=== PATIENT | female | born 1995 | race Caucasian/White ===

== ENCOUNTER 2020-10-23 12:07 | Emergency (ER) | payer SELFPAY ==
[2020-10-23 12:25] VITALS: BP 143/87; PULSE 98; RESP 18; TEMP 36.9; O2SAT 100; BMI 23.3
--- NOTE | 2020-10-23 14:12 | W.ED.EAR ---
HPI - Ear Problem General: Chief complaint: Ear Stated complaint: LEFT EAR PAIN Time Seen by Provider: 10/23/20 13:18 Source: patient Mode of arrival: ambulatory Limitations: no limitations History of Present Illness: MD Complaint: ear pain Location: left ear Duration: constant Severity: moderate Relieving factors: nothing Exacerbating factors: nothing Discharge from ear: yes - purulent Associated symptoms: Reports no associated symptoms and ear or mastoid pain; Denies fever(s), headache(s), neck pain or tinnitus Treatment prior to arrival: none Review of Systems Const: Denies: fever(s), chills, body aches, change in appetite, change in weight, fatigue, malaise or diaphoresis Eyes: Denies: change in vision, blurry vision, blind spots, photophobia, eye discomfort, eye discharge, eye redness, floaters or seeing flashes ENMT: Reports: ear or mastoid pain and ear discharge; Denies: throat pain, uvular edema, enlarged tonsils, odynophagia, hoarseness, mouth pain, swelling of lips/tongue, oral sores, bleeding gums, dental pain, dry mouth, change in hearing, tinnitus, disequilibrium, nasal discharge, nasal congestion, post nasal drip or sinus pain Card: Denies: chest pain, palpitations, irregular heart rhythm, edema, swelling of feet/ankles, lightheadedness, syncope, pre-syncope, dyspnea on exertion, orthopnea, leg pain with exertion or acrocyanosis Resp: Denies: dyspnea, productive cough, non-productive cough, wheezing, stridor, pain on inspiration, change in phlegm color, hemoptysis or chest congestion GI: Denies: abdominal pain, nausea, vomiting, hematemesis, dysphagia, diarrhea, constipation, GI cramping, change in bowel habits or rectal pain : Denies: flank pain, difficulty voiding, dysuria, urinary frequency, urinary urgency, urinary hesitancy or hematuria Musc: Denies: neck pain, back pain, extremity pain, extremity swelling, joint pain, joint swelling, joint redness, joint warmth or deformity Skin/Breast: Denies: rash, pruritus, erythema, sores, new lesions, changes in skin color or dry skin Neuro: Denies: headache(s), numbness in extremities, weakness in extremities, sensory changes, lack of coordination, difficulty walking, frequent falls, dizziness, vertigo, confusion, behavioral changes, Slurred speech present, difficulty communicating thoughts or seizure-like activity Psych: Denies: anxiety, depression, suicidal ideation or homicidal ideation Endo: Denies: polyuria, polydipsia, tired all the time, cold intolerance, excessive sweating, flushing, hot flashes or heat intolerance Rohan/Lymph: Denies: easy bruising, easy bleeding, petechiae, purpura, enlarged lymph nodes or tender lymph nodes All/Imm: Denies: urticaria, throat swelling, tongue swelling, facial swelling, acute wheezing or itchy eyes Physical Exam Const: COMMON NORMALS: no acute distress, average body habitus, patient oriented x3, no limitations, healthy appearing, alert and well nourished HENMT: COMMON NORMALS: external ears normal and EAC's normal; not normocephalic, head/scalp not atraumatic, hearing grossly not normal bilaterally, TM's not normal bilaterally, external nose not normal, nasal mucous membranes&turbinates abnorm, oral mucous membranes not moist, oropharynx not normal, dentition not normal and gingiva not normal HEAD & SCALP: not normocephalic and not atraumatic NOSE: external nose not normal and nasal mucous membranes&turbinates abnorm EXTERNAL EAR: Yes external ears normal EXTERNAL AUDITORY CANAL: EAC's normal and Abnormal EAC present EAC laterality: left TYMPANIC MEMBRANE: unable to visualize TM; TM(s) not normal bilaterally THROAT: no uvular edema Eye: COMMON NORMALS: negative for Equal, round and reactive pupils present, negative for EOMs intact bilaterally, negative for conjunctivae normal, negative for no scleral icterus, negative for no papilledema, negative for normal visual carrion by confrontation and negative for fundi normal bilaterally CONJUNCTIVA: No conjunctivae normal PUPIL: No Equal, round and reactive pupils present DIRECT OPHTHALMOSCOPY: No no papilledema and No fundi normal bilaterally Resp: COMMON NORMALS: normal respiratory effort, No retractions, No use of accessory muscles, clear to auscultation bilaterally and percussion normal AUSCULTATION: clear to auscultation bilaterally PERCUSSION: percussion normal Neuro: COMMON NORMALS: patient oriented x3 SENSORIUM/ORIENTATION: Yes alert Skin: COMMON NORMALS: no rashes or lesions noted, no wounds, turgor normal, no jaundice, no petechiae and no mottling GENERAL SKIN EXAM: no rashes or lesions noted and turgor normal Course Vital Signs: Vital signs: Vital Signs Temperature 98.5 F 10/23/20 12:25 Pulse Rate 98 10/23/20 12:25 Respiratory Rate 18 10/23/20 12:25 Blood Pressure 143/87 10/23/20 12:25 Pulse Oximetry 100 10/23/20 12:25 MDM - Ear MDM Narrative: Medical decision making narrative: Pt is well appearing non toxic and in no acute distress. Pts physical exam findings are c/w acute otits externa. I iwll place patient on otic antibiotic drops. Pt did not have any mastoid tenderness exam otherwise negative. I discussed with patient home care as well as return precautions. Pt verbalizes understanding Discharge Plan Discharge Patient Disposition: Home Clinical Impression: Otitis externa Qualifiers: Otitis externa type: unspecified type Chronicity: acute Laterality: left Qualified Code(s): H60.502 - Unspecified acute noninfective otitis externa, left ear Condition: Stable Prescriptions: New ciprofloxacin-hydrocortisone 0.2-1 % drops,suspension 3 drp otic (ear) BID 7 Days RF: 0 Discharge Orders: Discharge ED (Routine); Ordered 10/23/20 Ordered By: Talisha Hernandez Referrals: Harinder Ramirez Jr, MD [Primary Care Provider] - Discharge Diet: Advance as tolerated Discharge Activity: Limit activity as instructed Patient Instructions: Opioid Safety Activity Restrictions/Additional Instructions: Please no swimming and keep ear clean and dry until infection resolves Please take meds as prescribed Please return to ER with any worsening of symptoms Coding Level of Care Code ED Health Spa Manager for Natalie Sandoval
== END 2020-10-23 14:19 | disposition home or self-care (01) ==
PROVIDERS: Emergency Provider Registered Nurse; PCP Pediatrics Adolescent Medicine
DX: H60.502 Unspecified acute noninfective otitis externa, left ear (principal)
CPT/HCPCS: 99281

== ENCOUNTER 2020-12-07 23:29 | Emergency (ER) | payer SELFPAY ==
[2020-12-07 23:39] VITALS: BP 135/86; PULSE 101; RESP 18; TEMP 36.6; O2SAT 100; BMI 23.3
--- NOTE | 2020-12-07 23:47 | ED_ITS ---
HPI - Ear Problem General: Chief complaint: Ear Stated complaint: Ear Ache Time Seen by Provider: 12/07/20 23:29 History of Present Illness: HPI Narrative: Patient is a 25-year-old female comes to the ED with left ear pain. Patient says symptoms started approximately 5 days ago. She says she was out swimming just prior to onset of ear pain and think she had water in her left ear. She now has auricle pain. Denies any fever, chills or discharge from ear. Associated symptoms: Reports ear or mastoid pain (left ear); Denies fever(s), headache(s) or neck pain Review of Systems Const: Denies: fever(s), chills or fatigue Eyes: Denies: change in vision or eye discomfort ENMT: Reports: ear or mastoid pain (left ear); Denies: throat pain, odynophagia, nasal discharge or nasal congestion Card: Denies: chest pain, palpitations, edema, swelling of feet/ankles, dyspnea on exertion or orthopnea Resp: Denies: dyspnea, productive cough or non-productive cough GI: Denies: abdominal pain, nausea, vomiting, diarrhea, constipation or hematochezia : Denies: flank pain, dysuria or hematuria Musc: Denies: neck pain, back pain or extremity swelling Skin/Breast: Denies: rash or new lesions Neuro: Denies: headache(s), numbness in extremities or weakness in extremities PFSH ED PFSH: Social History Smoking and tobacco status: current every day smoker Alcohol intake: current Physical Exam Const: COMMON NORMALS: no acute distress, patient oriented x3, healthy appearing and alert GENERAL APPEARANCE: cooperative and comfortable HENMT: COMMON NORMALS: normocephalic HEAD & SCALP: normocephalic EXTERNAL EAR: Yes external ear abnormal Abnormal external ear present: auricular tenderness EXTERNAL AUDITORY CANAL: Abnormal EAC present EAC laterality: left Details: erythema, edema and EAC tenderness TYMPANIC MEMBRANE: unable to visualize TM (Unable to visualize TM on right ear due to wax in left due to EAC swelling) MOUTH: Normal oral and palatal mucosa present THROAT: posterior oropharynx normal and uvula midline Neck/C-Spine: COMMON NORMALS: supple GENERAL: Yes normal visual inspection Resp: COMMON NORMALS: normal respiratory effort, No retractions, No use of accessory muscles and clear to auscultation bilaterally AUSCULTATION: clear to auscultation bilaterally Cardio: COMMON NORMALS: regular rate, regular rhythm, S1 normal heart sound present, S2 normal heart sound present, No gallops present (Cardio), No clicks present (Cardio), No murmurs present (Cardio) and Peripheral pulses 2+ throughout RATE: regular rate RHYTHM: regular rhythm HEART SOUNDS: S1 normal heart sound present and S2 normal heart sound present PERIPHERAL PULSES: Peripheral pulses 2+ throughout GI: COMMON NORMALS: Normal to inspection, nondistended, normoactive bowel sounds present, Soft to palpation, non-tender and no masses PALPATION: Yes Soft to palpation : COMMON NORMALS: Yes no CVA tenderness BLADDER/KIDNEY EXAM: Yes no CVA tenderness Back/Pelvis: COMMON NORMALS: no CVA tenderness Extremity: COMMON NORMALS: normal to inspection Neuro: COMMON NORMALS: patient oriented x3 and moves all extremities SENSORIUM/ORIENTATION: Yes alert Skin: GENERAL SKIN EXAM: dry skin Course Vital Signs: Vital signs: Vital Signs Temperature 97.8 F 12/07/20 23:39 Pulse Rate 86 12/08/20 00:23 Respiratory Rate 18 12/07/20 23:39 Blood Pressure 156/88 12/08/20 00:23 Pulse Oximetry 100 12/08/20 00:23 MDM - Ear MDM Narrative: Medical decision making narrative: Patient is a 25-year-old female comes to the ED with left ear pain. Symptoms started 5 days ago after she had been swimming got some water in her ear. Exam shows left ear-otitis externa and I was unable to visualize the TM. She had her auricular tenderness as well. We went to discharge patient home with amoxicillin as well just in case she has any TM swelling or erythema that I was unable to visualize on exam due to canal edema. Patient was given Ciprodex eardrops while here in the ED. She was discharged home with Ciprodex eardrop prescription and a prescription for amoxicillin. She was told to follow-up with her PCP in a week to be reevaluated. Return ED precautions given. Patient understood and agree with plan. Discharge Plan Discharge Patient Disposition: Home Clinical Impression: Otitis externa Qualifiers: Otitis externa type: swimmer's ear Chronicity: acute Laterality: left Qualified Code(s): H60.332 - Swimmer's ear, left ear Condition: Stable Prescriptions: New ciprofloxacin-dexamethasone 0.3-0.1 % drops,suspension 4 drp otic (ear) BID 7 Days Qty: 7.5 RF: 0 amoxicillin 500 mg capsule 500 mg PO BID 10 Days Qty: 20 RF: 0 No Action mupirocin 2 % ointment 1 applic topical BID 14 Days Qty: 22 RF: 0 sulfamethoxazole-trimethoprim [Bactrim DS] 800-160 mg tablet 1 tab PO BID 7 Days Qty: 14 RF: 0 Discharge Orders: Discharge ED (Routine); Ordered 12/07/20 Ordered By: Franko Vance Discharge Diet: Regular Discharge Activity: Increase activity as tolerated Patient Instructions: Otitis Externa (ED) Activity Restrictions/Additional Instructions: Follow-up with medical provider as directed. Take medications as prescribed. Return to the ER or your medical provider if condition worsens. Please read and understand discharge instructions. Thank you for choosing [facility] for your healthcare needs today. Please realize this is an emergency room and that we are providing you with a medical screening exam and this may not be complete and all inclusive of all the testing and or work up that you may need to determine your ailment or severity of your illness. It is very important that you follow up as instructed or that you return to the Emergency Department should you have concerns or if your c ondition changes or worsens in any way. Stand Alone Forms: Work/School Release Coding Level of Care Code ED Slusher Operator for Natalie Fwjuan Exam Comprehensive
[2020-12-08] MEDS: ciprofloxacin-dexameth Otic Susp 7.5 mL Btl 4 DROP EAR-LEFT (00:19)
[2020-12-08 00:23] VITALS: BP 156/88; PULSE 86; O2SAT 100
== END 2020-12-08 00:25 | disposition home or self-care (01) ==
PROVIDERS: Emergency Provider Physician Assistant; PCP Pediatrics Adolescent Medicine
DX: H60.332 Swimmer's ear, left ear (principal); F17.210 Nicotine dependence, cigarettes, uncomplicated
CPT/HCPCS: 99282

== ENCOUNTER 2024-01-26 17:58 | Emergency (ER) | payer BC, MEDICAID, SELFPAY ==
[2024-01-26 18:27] VITALS: BP 143/88; PULSE 110; RESP 14; TEMP 37; O2SAT 98
--- NOTE | 2024-01-26 19:08 | ED_ITS ---
HPI - Recheck/Abnormal Lab/Rx General: Chief Complaint: Recheck/Abnormal Lab/Rx Stated Complaint: possibly preganant - laura mendosa sent Time Seen by Provider: 01/26/24 18:42 Source: patient Mode of arrival: ambulatory Limitations: no limitations History of Present Illness: Patient is a 28-year-old female presenting to the emergency department referred by Dr. Mendosa for blood test. Patient states she has not had a period for 2 months, and has never been in the past. She also notes she has been having breast pain and overall weight gain. States that she had 4 at home test that were negative, and a urine test at [facility] that was negative. States she is simply here just to find out if she is or not. No other symptoms reported at this time. MD complaint: other (Presents for blood test) Related Data Previous Rx's Medication Instructions Recorded mupirocin 2 % topical ointment 1 applic topical TID 10 days #15 12/16/22 grams diphenhydramine HCl 25 mg tablet 50 mg (2 x 25 mg) PO Q8H PRN 12/18/23 (Benadryl Allergy) nausea and vomiting #30 tabs famotidine 40 mg tablet (Pepcid) 40 mg PO BID #10 tabs 12/18/23 prednisone 20 mg tablet 60 mg (3 x 20 mg) PO DAILY 5 days 12/18/23 #15 tabs Allergies Allergy/AdvReac Type Severity Reaction Status Date / Time amoxicillin Allergy Mild ADR-Diarrhe Verified 01/26/24 18:31 a Review of Systems General: Reports: 10 or more systems reviewed and unremarkable except in HPI and below Const: Reports: change in weight and other (Present for blood test, breast pain, weight gain); Denies: fever(s), chills or fatigue Eyes: Denies: change in vision ENMT: Denies: throat pain, ear or mastoid pain or nasal discharge Card: Denies: chest pain, palpitations, swelling of feet/ankles or lightheadedness Resp: Denies: dyspnea, productive cough or wheezing GI: Denies: abdominal pain, nausea, vomiting, diarrhea or constipation : Denies: flank pain, difficulty voiding, dysuria or urinary frequency Musc: Denies: neck pain, back pain or joint pain Skin/Breast: Denies: rash Neuro: Denies: headache(s), numbness in extremities or weakness in extremities PFSH ED PFSH: Social History Smoking and tobacco/nicotine status: unknown if used tobacco/nicotine Alcohol intake: current Physical Exam Const: COMMON NORMALS: no acute distress and no limitations GENERAL APPEARANCE: cooperative, comfortable and well developed ORIENTATION/CONSCIOUSNESS: Yes awake HENMT: COMMON NORMALS: normocephalic, atraumatic and hearing grossly normal bilaterally HEAD & SCALP: normocephalic and atraumatic Eye: COMMON NORMALS: Equal, round and reactive pupils present, EOMs intact bilaterally and conjunctivae normal CONJUNCTIVA: Yes conjunctivae normal PUPIL: Yes Equal, round and reactive pupils present Neck/C-Spine: COMMON NORMALS: full ROM, supple and no JVD Resp: COMMON NORMALS: normal respiratory effort, No retractions, No use of accessory muscles and clear to auscultation bilaterally AUSCULTATION: clear to auscultation bilaterally Cardio: COMMON NORMALS: no JVD, regular rate, regular rhythm, No clicks prese nt (Cardio), No murmurs present (Cardio) and No rub (Cardio) RATE: regular rate RHYTHM: regular rhythm Extremity: COMMON NORMALS: normal to inspection, full ROM and capillary refill normal Psych: COMMON NORMALS: mental status grossly normal and Normal thought process present THOUGHT PROCESS: Normal thought process present Skin: COMMON NORMALS: no rashes or lesions noted GENERAL SKIN EXAM: no rashes or lesions noted Course Vital Signs: Vital signs: Vital Signs Temperature 98.6 F 01/26/24 18:27 Pulse Rate 110 H 01/26/24 18:27 Respiratory Rate 14 01/26/24 18:27 Blood Pressure 143/88 01/26/24 18:27 Pulse Oximetry 98 01/26/24 18:27 Oxygen Delivery Me thod Room Air 01/26/24 18:27 MDM - Recheck/Abnormal Lab/Rx Medical Decision Making Encounter for blood test. Multiple at home test negative and urine test negative. Here in the emergency department her centimeters test is also negative. She has no other complaints or issues states she was just here to rule this out. Will be discharged home. Lab Data Laboratory Results HCG, Qual Negative (Negative) 10/02/24 19:20 No radiology studies performed this visit Discharge Plan Discharge Patient Disposition: Home Clinical Impression: Encounter for test with result negative Condition: Stable Prescriptions: No Action mupirocin 2 % ointment 1 applic topical TID 10 Days Qty: 15 0RF prednisone 20 mg tablet 60 mg PO DAILY 5 Days Qty: 15 0RF famotidine [Pepcid] 40 mg tablet 40 mg PO BID Qty: 10 0RF diphenhydramine HCl [Benadryl Allergy] 25 mg tablet 50 mg PO Q8H PRN (Reason: nausea and vomiting) Qty: 30 0RF Discharge Orders: Discharge ED (Routine); Ordered 01/26/24 Ordered By: Shoaib Khalil Discharge Diet: Usual diet Discharge Activity: Resume usual activity Patient Instructions: Opioid Safety, Pain Management Activity Restrictions/Additional Instructions: Follow-up with primary care for any complaints. Coding Level of Care Code ED Technical Services Coordinator for Natalie Sandoval
[2024-01-26 19:45] LABS: HCG, Serum Qual Negative (Negative)
== END 2024-01-26 19:56 | disposition home or self-care (01) ==
PROVIDERS: Emergency Provider Physician Assistant
DX: Z32.02 Encounter for pregnancy test, result negative (principal)
CPT/HCPCS: 36415; 84703; 99283

== ENCOUNTER 2024-02-07 16:02 | Emergency (ER) | payer BC, MEDICAID, SELFPAY ==
[2024-02-07 16:14] VITALS: BP 153/87; PULSE 107; RESP 16; TEMP 36.7; O2SAT 98; BMI 27.4
--- NOTE | 2024-02-07 16:34 | ED_ITS ---
HPI - Dental/Oral 2 General: Chief complaint: Dental/Oral Stated complaint: rash all over Time Seen by Provider: 02/07/24 16:04 Source: patient Mode of arrival: ambulatory Limitations: no limitations History of Present Illness: Patient is a 28-year-old female presents to ED today with two separate complaints. First of all, she complains of a possible dental abscess. She is having pain to her right upper molar. She states she has known significant dental caries and dental disease. She admitting only has had poor dental follow-up due to lack of insurance. She reportedly just received adult Medicaid and is hoping to follow-up with a dentist soon. She has noticed some mild swelling to the right side of her face. She is still eating and drinking normally. No trouble swallowing or breathing. She is controlling secretions normally. Denies fevers or headache. Her second complaint is a pruritic rash to her neck, trunk, and bilateral upper and lower extremities. She states she is highly allergic to poison oak/[place]/leti and states she has these plants diffusely around her residence. She states she has had poison leti rashes before that have presented identically. She states she had good response to steroids that have been used in the past. MD Complaint: tooth pain Teeth map: 1. Onset (ago): day(s) Duration: constant Severity: moderate Relieving factors: nothing Exacerbating factors: nothing Context: history of dental caries and poor dental care Associated symptoms: Reports no associated symptoms; Denies ear or mastoid pain, fever(s) or odynophagia Treatment prior to arrival: none Related Data Previous Rx's Medication Instructions Recorded mupirocin 2 % topical ointment 1 applic topical TID 10 days #15 12/16/22 grams diphenhydramine HCl 25 mg tablet 50 mg (2 x 25 mg) PO Q8H PRN 12/18/23 (Benadryl Allergy) nausea and vomiting #30 tabs famotidine 40 mg tablet (Pepcid) 40 mg PO BID #10 tabs 12/18/23 prednisone 20 mg tablet 60 mg (3 x 20 mg) PO DAILY 5 days 12/18/23 #15 tabs clindamycin HCl 300 mg capsule 300 mg PO Q6H 7 days #28 caps 02/07/24 Allergies Allergy/AdvReac Type Severity Reaction Status Date / Time amoxicillin Allergy Mild ADR-Diarrhe Verified 02/07/24 16:16 a Review of Systems 2 Const: Denies: fever(s), chills, body aches, fatigue or malaise Eyes: Denies: change in vision, blurry vision, photophobia, floaters or seeing flashes ENMT: Reports: dental pain; Denies: throat pain, odynophagia, ear or mastoid pain, nasal discharge, nasal congestion or sinus pain Card: Denies: chest pain Resp: Denies: dyspnea GI: Denies: abdominal pain, nausea, vomiting or diarrhea Musc: Denies: neck pain, back pain, extremity pain, extremity swelling, joint pain or joint swelling Skin/Breast: Reports: rash and pruritus Neuro: Denies: headache(s) or dizziness PFSH ED 2 PFSH: Social History Smoking and tobacco/nicotine status: unknown if used tobacco/nicotine Alcohol intake: current Physical Exam 2 Const: COMMON NORMALS: no acute distress, average body habitus, patient oriented x3, no limitations, healthy appearing, alert and well nourished G ENERAL APPEARANCE: cooperative ORIENTATION/CONSCIOUSNESS: Yes awake, Yes oriented to person, Yes oriented to place and Yes oriented to time HENMT: FACE & SINUS: sinuses nontender and edema (mild ) on the right M OUTH: Normal oral and palatal mucosa present and lip normal TEETH & GINGIVA: Yes poor dentition (widespread dental disease/caries) TEETH & GINGIVA IMAGES: 1. significantly decayed molar; possible early abscess formation-nothing amendable to drainage at this time THROAT: posterior oropharynx normal and tonsils normal Eye: GENERAL EYE: appearance normal, both eyes and all related structures Neck/C-Spine: COMMON NORMALS: no lymphadenopathy GENERAL: Yes normal visual inspection, No anterior neck swelling and No submandibular swelling Resp: COMMON NORMALS: normal respiratory effort Neuro: COMMON NORMALS: patient oriented x3, moves all extremities, no focal motor deficits, no sensory deficits noted and gait normal S ENSORIUM/ORIENTATION: Yes alert, Yes oriented to person, Yes oriented to place and Yes oriented to time Skin: NARRATIVE SKIN EXAM: scattered erythematous areas to neck, volar forearms, trunk, and upper legs that appear consistent with a plant dermatitis RASHES: rashes noted Course 2 Vital Signs: Vital signs: Vital Signs Temperature 98.0 F 02/07/24 16:14 Pulse Rate 107 H 02/07/24 16:14 Respiratory Rate 16 02/07/24 16:14 Blood Pressure 153/87 02/07/24 16:14 Pulse Oximetry 98 02/07/24 16:14 Oxygen Delivery Me thod Room Air 02/07/24 16:14 MDM - Dental/Oral Medical Decision Making Patient requesting IM steroids for plant dermatitis. She was given a long- acting and short acting IM steroid prior to discharge. She has an allergy to amoxicillin. Will place her on clindamycin for dental infection. Recommend follow-up with dentist as soon as possible. Return precautions given. Differential Diagnosis Likely dental abscess Medical Records I reviewed the patient's medical records. No radiology studies performed this visit Discharge Plan Discharge Patient Disposition: Home Clinical Impression: Dental caries, Dental abscess, Dermatitis due to plant Condition: Stable Prescriptions: New clindamycin HCl 300 mg capsule 300 mg PO Q6H 7 Days Qty: 28 0RF No Action mupirocin 2 % ointment 1 applic topical TID 10 Days Qty: 15 0RF prednisone 20 mg tablet 60 mg PO DAILY 5 Days Qty: 15 0RF famotidine [Pepcid] 40 mg tablet 40 mg PO BID Qty: 10 0RF diphenhydramine HCl [Benadryl Allergy] 25 mg tablet 50 mg PO Q8H PRN (Reason: nausea and vomiting) Qty: 30 0RF Discharge Orders: Discharge ED (Routine); Ordered 02/07/24 Ordered By: Carole Arguelles Patient Instructions: Poison [place], [place], and [place] - Adult, Dental Abscess Coding Level of Care Code ED Merchandising Coordinator for Chg Jaime
[2024-02-07] MEDS: hydrocortisone 100 mg/2 mL SDV 75 MG IM (16:40)
[2024-02-07] MEDS: triamcinolone 40 mg/mL SDV IM (16:40)
[2024-02-07 16:48] VITALS: BP 136/96; PULSE 106; RESP 16; O2SAT 97
[2024-02-07 16:51] VITALS: BP 123/78; PULSE 110; RESP 16; O2SAT 97
== END 2024-02-07 16:54 | disposition home or self-care (01) ==
PROVIDERS: Emergency Provider Physician Assistant
DX: K04.7 Periapical abscess without sinus (principal); K02.9 Dental caries, unspecified; L25.5 Unspecified contact dermatitis due to plants, except food
CPT/HCPCS: 96372; 99284; J1720; J3301

== ENCOUNTER 2024-10-25 12:07 | Emergency (ER) | payer BC, MEDICAID, SELFPAY ==
[2024-10-25 12:16] VITALS: BP 146/87; PULSE 110; RESP 18; TEMP 36.7; O2SAT 100; BMI 26.6
--- OUTSIDE RECORDS SUMMARY | 2024-10-25 12:16 | XMS_ITS | Encounter Summary ---
Author Organization [facility] Address [address] [place] [address] Care Team Providers Care Electrical Contractor Name Role Phone James Hylton MD, Harinder Calzada Primary Care Pr ovider Encounter Details Date Type Department Care Team (Latest Contact Info) Description 03/06/2002 Outpatient Historical [facility] Oral and Maxillo Surgery- [address] [place] [address] Adolfo Aguilar, DDS NO ADDRESS ON FILE UNSPEC DENTAL CARIES (Primary Dx) Social History Tobacco Use Types Packs/Day Years Used Date Smoking Tobacco: Never Assessed Comments Unknown Sex and Gender Information Value Date Recorded Sex Assigned at Not on file Legal Sex Female 6:21 AM MANAGER TRANSPORT Gender Identity Not on file Sexual Orientation Not on file documented as of this encounter Plan of Treatment Not on file documented as of this encounter Visit Diagnoses Diagnosis Unspecified dental caries- Primary documented in this encounter Care Teams Electrical Contractor Relationship Specialty Start Date End Date Harinder Ramirez Jr., MD [address] [place] [address] [phone] PCP - General 05/24/02 documented as of this encounter
--- OUTSIDE RECORDS SUMMARY | 2024-10-25 12:16 | XMS_ITS | Clinical Summary ---
Author Organization [facility] Address [address] [address] Phone Care Team Providers Care Picture Painter Name Role Phone James Hylton MD, Harinder Calzada Primary Care Pr ovider Allergies No known active allergies Medications No known medications Immunizations Immunization Administration Dates Next Due (M-M-R II/PRIORIX)(12 MO UP) MEASLES, MUMPS AND RUBELLA VIRUS VACCINE, 0.5 ML IM/SUBCUT 08/07/1999,12/01/1995 Dt Dtp Dtap Vaccine 08/07/1999, 7,12/01/1995,1995,06/22/1995 HIB, Unspecified Formulation 06/28/1996, 12/01/1995,09/16/1995,1995 Hepatitis B Vaccine 09/16/1995,06/22/1995,1994 IPV/OPV 08/07/1999, 6,09/16/1995,1995 Family History Medical History Relation Name Comments No Known Problems Father Relation Name Status Comments Father Social History Tobacco Use Types Packs/Day Years Used Date Smoking Tobacco: Every Day Cigarettes 0.5 7 Comments Unknown Sex and Gender Information Value Date Recorded Sex Assigned at Not on file Legal Sex Female 6:21 AM HEEL PRICKER Gender Identity Not on file Sexual Orientation Not on file Last Filed Vital Signs Vital Sign Reading Time Taken Comments Blood Pressure 112/64 03/22/2019 5:43 AM HEEL PRICKER Pulse - - Temperature 36.8 C (98.2 F) 03/22/2019 5:43 AM HEEL PRICKER Respiratory Rate 18 03/22/2019 5:14 AM HEEL PRICKER Oxygen Saturation 98% 03/22/2019 5:43 AM HEEL PRICKER Inhaled Oxygen Concentration - - Weight 59.1 kg (130 lb 6.4 oz) 03/22/2019 5:14 A M HEEL PRICKER Height 165.1 cm (5' 5 ) 03/22/2019 5:14 AM HEEL PRICKER Body Mass Index 21.7 03/22/2019 5:14 AM HEEL PRICKER Plan of Treatment Health Maintenance Due Date Last Done Comments DTAP/TDAP/TD VACCINES (6 - Tdap) 2005 08/07/1999, 06/28/1996, 12/01/1995, Additional history exists CERVICAL CANCER SCREENING 11/20/2015 HPV/Cotest (21-29) 11/20/2015 PAP SMEAR 11/20/2015 INFLUENZA VACCINE (#1) 2023 HPV/Cotest (30-65) 2024 HEPATITIS B VACCINES Completed 09/16/1995, 06/22/1995, 1994 HPV VACCINES Aged Out No longer eligi ble based on patient's age to complete this topic Care Teams Picture Painter Relationship Specialty Start Date End Date James Hylton, Harinder Calzada MD [address] [place] [phone] PCP - General 05/24/02
--- OUTSIDE RECORDS SUMMARY | 2024-10-25 12:16 | XMS_ITS | Encounter Summary ---
Author Organization [facility] Address [address] [place] [address] Care Team Providers Care Correspondent Name Role Phone James Hylton MD, Harinder Calzada Primary Care Pr ovider Encounter Details Date Type Department Care Team (Latest Contact Info) Description 08/09/2002 Outpatient Historical [facility] Oral and Maxillo Surgery- [address] [place] [address] Adolfo Aguilar, DDS NO ADDRESS ON FILE UNSPEC DENTAL CARIES (Primary Dx) Social History Tobacco Use Types Packs/Day Years Used Date Smoking Tobacco: Never Assessed Comments Unknown Sex and Gender Information Value Date Recorded Sex Assigned at Not on file Legal Sex Female 6:21 AM TAFFY PULLER Gender Identity Not on file Sexual Orientation Not on file documented as of this encounter Plan of Treatment Not on file documented as of this encounter Visit Diagnoses Diagnosis Unspecified dental caries- Primary documented in this encounter Care Teams Correspondent Relationship Specialty Start Date End Date Harinder Ramirez Jr., MD [address] [place] [address] [phone] PCP - General 05/24/02 documented as of this encounter
--- OUTSIDE RECORDS SUMMARY | 2024-10-25 12:16 | XMS_ITS | Clinical Summary ---
Author Organization [facility] Address [address] [facility] Attn: Epic Prelude ADT [place]IRTA NIETO [address] Care Team Providers Care Radiology Manager Name Role Phone James Hylton MD, Harinder Calzada Primary Care Pr ovider Allergies No known active allergies Immunizations Immunization Administration Dates Next Due (M-M-R [...] Used Date Smoking Tobacco: Every Day Cigarettes Comments Unknown Sex and Gender Information Value Date Recorded Sex Assigned at Not on file Legal Sex Female 2:23 PM INCLUSION SPECIAL EDUCATOR Gender Identity Not on file Sexual Orientation Not on file Last Filed Vital Signs Vital Sign Reading Time Taken Comments Blood Pressure 112/64 03/22/2019 5:43 AM INCLUSION SPECIAL EDUCATOR Pulse - - Temperature 36.8 C (98.2 F) 03/22/2019 5:43 AM INCLUSION SPECIAL EDUCATOR Respiratory Rate 18 03/22/2019 5:14 AM INCLUSION SPECIAL EDUCATOR Oxygen Saturation - - Inhaled Oxygen Concentration - - Weight 59.1 kg (130 lb 6.4 oz) 03/22/2019 5:14 A M INCLUSION SPECIAL EDUCATOR Height 165.1 cm (5' 5 ) 03/22/2019 5:14 AM INCLUSION SPECIAL EDUCATOR Body Mass Index 21.7 03/22/2019 5:14 AM INCLUSION SPECIAL EDUCATOR Plan of Treatment Health Maintenance Due Date Last Done Comments DTAP/TDAP/TD VACCINES (6 - Tdap) 2005 08/07/1999, 06/28/1996, 12/01/1995, Additional history exists CERVICAL CANCER SCREENING 11/20/2015 HPV/Cotest (21-29) 11/20/2015 PAP SMEAR 11/20/2015 HPV/Cotest (30-65) 2024 INFLUENZA VACCINE (#1) 2024 HEPATITIS B VACCINES Completed 09/16/1995, 06/22/1995, 1994 HPV VACCINES Aged Out No longer eligi ble based on patient's age to complete this topic Care Teams Radiology Manager Relationship Specialty Start Date End Date James Hylton, Harinder Calzada MD [address] [place] [phone] PCP - General 05/24/02
--- OUTSIDE RECORDS SUMMARY | 2024-10-25 12:16 | XMS_ITS | Encounter Summary ---
Author Organization [facility] Address [address] [place] [address] Care Team Providers Care Drink Waiter Name Role Phone James Hylton MD, Harinder Calzada Primary Care Pr muncieer Encounter Details Date Type Department Care Team (Latest Contact Info) Description 08/09/2002 Outpatient Historical [facility] Operating Room [address] [place] [address] Adolfo Aguilar, LUNAS NO ADDRESS ON FILE UNSPEC DENTAL CARIES (Primary Dx) Social History Tobacco Use Types Packs/Day Years Used Date Smoking Tobacco: Never Assessed Comments Unknown Sex and Gender Information Value Date Recorded Sex Assigned at Not on file Legal Sex Female 6:21 AM DESIGN PAINTER Gender Identity Not on file Sexual Orientation Not on file documented as of this encounter Plan of Treatment Not on file documented as of this encounter Visit Diagnoses Diagnosis Unspecified dental caries- Primary documented in this encounter Care Teams Drink Waiter Relationship Specialty Start Date End Date Harinder Ramirez Jr., MD [address] [place] [phone] PCP - General 05/24/02 documented as of this encounter
--- OUTSIDE RECORDS SUMMARY | 2024-10-25 12:16 | XMS_ITS | Encounter Summary ---
Author Organization [facility] Address [address] [place] [address] Care Team Providers Care Patient Support Partner Name Role Phone James Hylton MD, Harinder Calzada Primary Care Pr reynoldsvilleer Encounter Details Date Type Department Care Team (Latest Contact Info) Description 05/24/[address] [facility] Operating Room [address] [place] [address] Adolfo Aguilar, LUNAS NO ADDRESS ON FILE DENTAL DISORDER NOS (Primary Dx) Social History Tobacco Use Types Packs/Day Years Used Date Smoking Tobacco: Never Assessed Comments Unknown Sex and Gender Information Value Date Recorded Sex Assigned at Not on file Legal Sex Female 6:21 AM CHIPPER FEEDER Gender Identity Not on file Sexual Orientation Not on file documented as of this encounter Plan of Treatment Not on file documented as of this encounter Visit Diagnoses Diagnosis Unspecified disorder of the teeth and supporting structures- Primary documented in this encounter Care Teams Patient Support Partner Relationship Specialty Start Date End Date Harinder Ramirez Jr., MD [address] [place] [phone] PCP - General 05/24/02 documented as of this encounter
--- NOTE | 2024-10-25 12:32 | W.ED.DENTAL ---
HPI - Dental/Oral General: Chief complaint: Dental/Oral Stated complaint: facial swelling, tooth ache Time Seen by Provider: 10/25/24 12:25 Source: patient Mode of arrival: ambulatory Limitations: no limitations History of Present Illness: 28-year-old female states she has had right upper dental pain over the last 2 days she has had some slight swelling as well. She denies any fever denies any trismus she has not seen a dentist. Rates her pain an 8 out of 10 denies any worsening improving factors. Associated symptoms: Denies fever(s) Related Data Previous Rx's ?Medication ?Instructions ?Recorded mupirocin 2 % topical ointment 1 applic topical TID 10 days #15 12/16/22 grams diphenhydramine HCl 25 mg tablet 50 mg (2 x 25 mg) PO Q8H PRN 12/18/23 (Benadryl Allergy) nausea and vomiting #30 tabs famotidine 40 mg tablet (Pepcid) 40 mg PO BID #10 tabs 12/18/23 prednisone 20 mg tablet 60 mg (3 x 20 mg) PO DAILY 5 days 12/18/23 #15 tabs cephalexin 500 mg capsule 500 mg PO TID 7 days #21 caps 10/25/24 naproxen 500 mg tablet (Naprosyn) 500 mg PO BID PRN pain #20 tabs 10/25/24 Allergies Allergy/AdvReac Type Severity Reaction Status Date / Time amoxicillin Allergy Mild ADR-Diarrhe Verified 02/07/24 16:16 a Review of Systems Const: Denies: fever(s), chills, body aches or change in appetite ENMT: Reports: dental pain; Denies: throat pain Card: Denies: chest pain Resp: Denies: dyspnea GI: Denies: abdominal pain, nausea, vomiting or diarrhea Musc: Denies: neck pain or back pain Skin/Breast: Denies: rash Neuro: Denies: headache(s) PFSH ED PFSH: Social History Smoking and tobacco/nicotine status: unknown if used tobacco/nicotine Alcohol intake: current Physical Exam Const: COMMON NORMALS: no acute distress, patient oriented x3 and healthy appearing HENMT: COMMON NORMALS: normocephalic and atraumatic HEAD & SCALP: normocephalic and atraumatic OTHER: Dental caries noted tenderness to right upper molar has some slight swelling no abscess or trismus Eye: COMMON NORMALS: conjunctivae normal CONJUNCTIVA: Yes conjunctivae normal Neck/C-Spine: COMMON NORMALS: full ROM and supple Chest: COMMONS NORMALS: normal inspection of the chest Resp: COMMON NORMALS: normal respiratory effort Cardio: COMMON NORMALS: regular rate RATE: regular rate Extremity: COMMON NORMALS: normal to inspection and full ROM Neuro: COMMON NORMALS: patient oriented x3, moves all extremities and no focal motor deficits Psych: COMMON NORMALS: mental status grossly normal, Normal thought process present and cooperative THOUGHT PROCESS: Normal thought process present Skin: COMMON NORMALS: no rashes or lesions noted and no wounds GENERAL SKIN EXAM: no rashes or lesions noted Course Vital Signs: Vital signs: Vital Signs Temperature 98.1 F 10/25/24 12:16 Pulse Rate 110 H 10/25/24 12:16 Respiratory Rate 18 10/25/24 12:16 Blood Pressure 146/87 10/25/24 12:16 Pulse Oximetry 100 10/25/24 12:16 Oxygen Delivery Me thod Room Air 10/25/24 12:16 MDM - Dental/Oral Medical Decision Making Patient presents for dental pain no abscess formation at this time no trismus we will start her on antibiotics she is to follow-up with dentist return if worsening. Medical Records I reviewed the patient's medical records. No radiology studies performed this visit Discharge Plan Discharge Patient Disposition: Home Clinical Impression: Dental infection Condition: Stable Prescriptions: New cephalexin 500 mg capsule 500 mg PO TID 7 Days Qty: 21 0RF naproxen [Naprosyn] 500 mg tablet 500 mg PO BID PRN (Reason: pain) Qty: 20 0RF No Action mupirocin 2 % ointment 1 applic topical TID 10 Days Qty: 15 0RF prednisone 20 mg tablet 60 mg PO DAILY 5 Days Qty: 15 0RF famotidine [Pepcid] 40 mg tablet 40 mg PO BID Qty: 10 0RF diphenhydramine HCl [Benadryl Allergy] 25 mg tablet 50 mg PO Q8H PRN (Reason: nausea and vomiting) Qty: 30 0RF Discharge Orders: Discharge ED (Routine); Ordered 10/25/24 Ordered By: Basia Anand Discharge Diet: Advance as tolerated Discharge Activity: Resume usual activity Patient Instructions: Toothache (ED) Print Language: Mongolian Coding Level of Care Code ED Mineral Economist for Natalie Sandoval
[2024-10-25] MEDS: HYDROcodone-acetaminophen 7.5-325 mg Tablet 1 TAB PO (12:35)
[2024-10-25 12:39] VITALS: BP 158/108; PULSE 104; O2SAT 100
== END 2024-10-25 12:40 | disposition home or self-care (01) ==
PROVIDERS: Emergency Provider Emergency Medicine
DX: K04.7 Periapical abscess without sinus (principal)
CPT/HCPCS: 99283; J9999

== ENCOUNTER 2024-11-19 21:01 | Emergency (ER) | payer BC, MEDICAID, SELFPAY ==
[2024-11-19 21:01] VITALS: BP 148/84; PULSE 110; RESP 16; TEMP 36.7; O2SAT 97; BMI 26.6
--- OUTSIDE RECORDS SUMMARY | 2024-11-19 21:08 | XMS_ITS | Encounter Summary ---
Author Organization [facility] Address [address] [place] [address] Care Team Providers Care Valve Machine Operator Name Role Phone James Hylton MD, Harinder Calzada Primary Care Pr ovider Encounter Details Date Type Department Care Team (Latest Contact Info) Description 03/06/2002 Outpatient Historical [facility] Oral and Maxillo Surgery- [address] [place] [address] Adolfo Aguilar, DDS NO ADDRESS ON FILE UNSPEC DENTAL CARIES (Primary Dx) Social History Tobacco Use Types Packs/Day Years Used Date Smoking Tobacco: Never Assessed Comments Unknown Sex and Gender Information Value Date Recorded Sex Assigned at Not on file Legal Sex Female 6:21 AM PANEL INSTALLER Gender Identity Not on file Sexual Orientation Not on file documented as of this encounter Plan of Treatment Not on file documented as of this encounter Visit Diagnoses Diagnosis Unspecified dental caries- Primary documented in this encounter Care Teams Valve Machine Operator Relationship Specialty Start Date End Date Harinder Ramirez Jr., MD [address] [place] [address] [phone] PCP - General 05/24/02 documented as of this encounter
--- OUTSIDE RECORDS SUMMARY | 2024-11-19 21:08 | XMS_ITS | Encounter Summary ---
Author Organization [facility] Address [address] [place] [address] Care Team Providers Care Pipe Line Inspector Name Role Phone James Hylton MD, Harinder Calzada Primary Care Pr fieldtoner Encounter Details Date Type Department Care Team (Latest Contact Info) Description 08/09/2002 Outpatient Historical [facility] Operating Room [address] [place] [address] Adolfo Aguilar, LUNAS NO ADDRESS ON FILE UNSPEC DENTAL CARIES (Primary Dx) Social History Tobacco Use Types Packs/Day Years Used Date Smoking Tobacco: Never Assessed Comments Unknown Sex and Gender Information Value Date Recorded Sex Assigned at Not on file Legal Sex Female 6:21 AM UPPER CUTTER Gender Identity Not on file Sexual Orientation Not on file documented as of this encounter Plan of Treatment Not on file documented as of this encounter Visit Diagnoses Diagnosis Unspecified dental caries- Primary documented in this encounter Care Teams Pipe Line Inspector Relationship Specialty Start Date End Date Harinder Ramirez Jr., MD [address] [place] [phone] PCP - General 05/24/02 documented as of this encounter
--- OUTSIDE RECORDS SUMMARY | 2024-11-19 21:08 | XMS_ITS | Clinical Summary ---
Author Organization [facility] Address [address] [address] Phone Care Team Providers Care Electrocardiograph Repairer Name Role Phone James Hylton MD, Harinder [...] on file Legal Sex Female 6:21 AM C.O.D. AUDIT CLERK Gender Identity Not on file Sexual Orientation Not on file Last Filed Vital Signs Vital Sign Reading Time Taken Comments Blood Pressure 112/64 03/22/2019 5:43 AM C.O.D. AUDIT CLERK Pulse - - Temperature 36.8 C (98.2 F) 03/22/2019 5:43 AM C.O.D. AUDIT CLERK Respiratory Rate 18 03/22/2019 5:14 AM C.O.D. AUDIT CLERK Oxygen Saturation 98% 03/22/2019 5:43 AM C.O.D. AUDIT CLERK Inhaled Oxygen Concentration - - Weight 59.1 kg (130 lb 6.4 oz) 03/22/2019 5:14 A M C.O.D. AUDIT CLERK Height 165.1 cm (5' 5 ) 03/22/2019 5:14 AM C.O.D. AUDIT CLERK Body Mass Index 21.7 03/22/2019 5:14 AM C.O.D. AUDIT CLERK Plan of Treatment Health Maintenance Due Date Last Done Comments DTAP/TDAP/TD VACCINES (6 - Tdap) 2005 08/07/1999, 06/28/1996, 12/01/1995, Additional history exists HPV VACCINES (1 - 3-dose series) 2009 CERVICAL CANCER SCREENING 11/20/2015 HPV/Cotest (21-29) 11/20/2015 PAP SMEAR 11/20/2015 HPV/Cotest (30-65) 2024 INFLUENZA VACCINE (#1) 2024 HEPATITIS B VACCINES Completed 09/16/1995, 06/22/1995, 1994 Care Teams Electrocardiograph Repairer Relationship Specialty Start Date End Date James Hylton, Harinder Calzada MD [address] [place] [address] [phone] PCP - General 05/24/02
--- OUTSIDE RECORDS SUMMARY | 2024-11-19 21:08 | XMS_ITS | Encounter Summary ---
Author Organization [facility] Address [address] [place] [address] Care Team Providers Care Testing Engineer Name Role Phone James Hylton MD, Harinder Calzada Primary Care Pr ovider Encounter Details Date Type Department Care Team (Latest Contact Info) Description 08/09/2002 Outpatient Historical [facility] Oral and Maxillo Surgery- [address] [place] [address] Adolfo Aguilar, DDS NO ADDRESS ON FILE UNSPEC DENTAL CARIES (Primary Dx) Social History Tobacco Use Types Packs/Day Years Used Date Smoking Tobacco: Never Assessed Comments Unknown Sex and Gender Information Value Date Recorded Sex Assigned at Not on file Legal Sex Female 6:21 AM PAPER SPOOLER Gender Identity Not on file Sexual Orientation Not on file documented as of this encounter Plan of Treatment Not on file documented as of this encounter Visit Diagnoses Diagnosis Unspecified dental caries- Primary documented in this encounter Care Teams Testing Engineer Relationship Specialty Start Date End Date Harinder Ramirez Jr., MD [address] [place] [address] [phone] PCP - General 05/24/02 documented as of this encounter
--- OUTSIDE RECORDS SUMMARY | 2024-11-19 21:08 | XMS_ITS | Encounter Summary ---
Author Organization [facility] Address [address] [place] [address] Care Team Providers Care Speech Language Pathology Assistant Name Role Phone James Hylton MD, Harinder Calzada Primary Care Pr genevaer Encounter Details Date Type Department Care Team (Latest Contact Info) Description 05/24/2002 Outpatient Historical [facility] Operating Room [address] [place] [address] Adolfo Aguilar, LUNAS NO ADDRESS ON FILE DENTAL DISORDER NOS (Primary Dx) Social History Tobacco Use Types Packs/Day Years Used Date Smoking Tobacco: Never Assessed Comments Unknown Sex and Gender Information Value Date Recorded Sex Assigned at Not on file Legal Sex Female 6:21 AM PUBLIC SPEAKING INSTRUCTOR Gender Identity Not on file Sexual Orientation Not on file documented as of this encounter Plan of Treatment Not on file documented as of this encounter Visit Diagnoses Diagnosis Unspecified disorder of the teeth and supporting structures- Primary documented in this encounter Care Teams Speech Language Pathology Assistant Relationship Specialty Start Date End Date Harinder Ramirez Jr., MD [address] [place] [address] [phone] PCP - General 05/24/02 documented as of this encounter
--- OUTSIDE RECORDS SUMMARY | 2024-11-19 21:08 | XMS_ITS | Clinical Summary ---
Author Organization [facility] Address [address] [facility] Attn: Epic Prelude ADT MIRTA NIETO [address] Care Team Providers Care Waistline Joiner Lockstitch Name Role Phone James Hylton MD, Harinder [...] on file Legal Sex Female 2:23 PM LARD TUB WASHER Gender Identity Not on file Sexual Orientation Not on file Last Filed Vital Signs Vital Sign Reading Time Taken Comments Blood Pressure 112/64 03/22/2019 5:43 AM LARD TUB WASHER Pulse - - Temperature 36.8 C (98.2 F) 03/22/2019 5:43 AM LARD TUB WASHER Respiratory Rate 18 03/22/2019 5:14 AM LARD TUB WASHER Oxygen Saturation - - Inhaled Oxygen Concentration - - Weight 59.1 kg (130 lb 6.4 oz) 03/22/2019 5:14 A M LARD TUB WASHER Height 165.1 cm (5' 5 ) 03/22/2019 5:14 AM LARD TUB WASHER Body Mass Index 21.7 03/22/2019 5:14 AM LARD TUB WASHER Plan of Treatment Health Maintenance Due Date Last Done Comments DTAP/TDAP/TD VACCINES (6 - Tdap) 2005 08/07/1999, 06/28/1996, 12/01/1995, Additional history exists HPV VACCINES (1 - 3-dose series) 2009 CERVICAL CANCER SCREENING 11/20/2015 HPV/Cotest (21-29) 11/20/2015 PAP SMEAR 11/20/2015 HPV/Cotest (30-65) 2024 INFLUENZA VACCINE (#1) 2024 HEPATITIS B VACCINES Completed 09/16/1995, 06/22/1995, 1994 Care Teams Waistline Joiner Lockstitch Relationship Specialty Start Date End Date James Hylton, Harinder Calzada MD [address] [place] [address] [phone] PCP - General 05/24/02
--- NOTE | 2024-11-19 21:29 | W.ED.SKABFB ---
HPI - Skin/Abscess/Foreign Bdy General: Chief complaint: Skin/Abscess/Foreign Body Stated complaint: Rash Time Seen by Provider: 11/19/24 21:20 History of Present Illness: Patient is a 29-year-old female without medical issues that presented to the ED with poison leti or poison sumac. This occurred approximately 2 weeks ago and 1 spot on her right leg, and then has moved to her left flank, and is now on her torso. There is no facial involvement at this time. She is not having difficulty breathing. She denies any palpitations. Associated symptoms: Deny chills, fever(s), nausea or vomiting Related Data Previous Rx's ?Medication ?Instructions ?Recorded mupirocin 2 % topical ointment 1 applic topical TID 10 days #15 12/16/22 grams diphenhydramine HCl 25 mg tablet 50 mg (2 x 25 mg) PO Q8H PRN 12/18/23 (Benadryl Allergy) nausea and vomiting #30 tabs famotidine 40 mg tablet (Pepcid) 40 mg PO BID #10 tabs 12/18/23 prednisone 20 mg tablet 60 mg (3 x 20 mg) PO DAILY 5 days 12/18/23 #15 tabs naproxen 500 mg tablet (Naprosyn) 500 mg PO BID PRN pain #20 tabs 10/25/24 clobetasol 0.05 % topical ointment 1 applic topical BID 1 week #60 11/19/24 grams methylprednisolone 4 mg tablets in See Rx Instructions PO .COMPLEX 11/19/24 a dose pack (Medrol (Jagjit)) #21 ea Allergies Allergy/AdvReac Type Severity Reaction Status Date / Time amoxicillin Allergy Mild ADR-Diarrhe Verified 02/07/24 16:16 a Review of Systems Const: Denies: fever(s), chills, body aches or change in appetite ENMT: Reports: dental pain; Denies: throat pain Card: Denies: chest pain Resp: Denies: dyspnea GI: Denies: abdominal pain, nausea, vomiting or diarrhea Musc: Denies: neck pain or back pain Skin/Breast: Reports: rash, pruritus and erythema Neuro: Denies: headache(s) Psych: Denies: anxiety or depression PFS ED PFSH: Social History Smoking and tobacco/nicotine status: unknown if used tobacco/nicotine Alcohol intake: current Female Reproductive History: Date of last menstrual period: 11/12/24 Physical Exam Const: COMMON NORMALS: no acute distress, patient oriented x3 and healthy appearing HENMT: COMMON NORMALS: normocephalic and atraumatic HEAD & SCALP: normocephalic and atraumatic Eye: COMMON NORMALS: conjunctivae normal CONJUNCTIVA: Yes conjunctivae normal Neck/C-Spine: COMMON NORMALS: full ROM and supple Chest: COMMONS NORMALS: normal inspection of the chest Resp: COMMON NORMALS: normal respiratory effort Cardio: COMMON NORMALS: regular rate RATE: regular rate Extremity: COMMON NORMALS: normal to inspection and full ROM Neuro: COMMON NORMALS: patient oriented x3, moves all extremities and no focal motor deficits Psych: COMMON NORMALS: mental status grossly normal, Normal thought process present and cooperative THOUGHT PROCESS: Normal thought process present Skin: SKIN IMAGES (FEMALE):  1. rash 2. rash 3. rash Course Vital Signs: Vital signs: Vital Signs Temperature 98.0 F 11/19/24 21:01 Pulse Rate 110 H 11/19/24 21:01 Respiratory Rate 16 11/19/24 21:01 Blood Pressure 148/84 11/19/24 21:01 Pulse Oximetry 97 11/19/24 21:01 Oxygen Delivery Me thod Room Air 11/19/24 21:01 MDM - Skin/Abscess/Foreign Bdy Medicial Decision Making Patient is 29-year-old female with ongoing and repeating plant dermatitis. Suspect she is continuing to reexposed herself. Discussed with patient. She will wash all of her bedding, sheets, animals and take medication as prescribed. Patient's questions were answered to her satisfaction. No radiology studies performed this visit Discharge Plan Discharge Patient Disposition: Home Clinical Impression: Plant irritant contact dermatitis, Contact dermatitis due to poison sumac Condition: Stable Prescriptions: New methylprednisolone [Medrol (Jagjit)] 4 mg tablets,dose pack See Rx Instructions .ROUTE .COMPLEX Qty: 21 0RF Rx Instructions: for 6 days clobetasol 0.05 % ointment 1 applic topical BID 7 Days Qty: 60 0RF Rx Instructions: Apply to areas of plant dermatitis up to twice daily. Avoid face and genitals. No Action mupirocin 2 % ointment 1 applic topical TID 10 Days Qty: 15 0RF prednisone 20 mg tablet 60 mg PO DAILY 5 Days Qty: 15 0RF famotidine [Pepcid] 40 mg tablet 40 mg PO BID Qty: 10 0RF diphenhydramine HCl [Benadryl Allergy] 25 mg tablet 50 mg PO Q8H PRN (Reason: nausea and vomiting) Qty: 30 0RF naproxen [Naprosyn] 500 mg tablet 500 mg PO BID PRN (Reason: pain) Qty: 20 0RF Discharge Orders: Discharge ED (Routine); Ordered 11/19/24 Ordered By: Leah Zurita Discharge Diet: Usual diet Discharge Activity: Resume usual activity Patient Instructions: Poison Leti, Duck, and Sumac - Adult, Patient Portal & [facility] Instructions Activity Restrictions/Additional Instructions: Wash all sheets, bedding, towels, clothes, shoes/shoelaces, hiking gear associated with plant touching. Wash all dogs/fur babies Take [id number]-yynxeqf Claritin daily to help with antihistamines You may also obtain Pepcid qqmy-idy-eanhheh also called famotidine, take 2 twice daily to help with histamine release Apply careful sparse cover of steroids sent to pharmacy over areas affected. Do not use on your face or genitals. Print Language: [place] Coding Level of Care Code ED Elevator Examiner for Natalie Sandoval
== END 2024-11-19 21:57 | disposition home or self-care (01) ==
PROVIDERS: Emergency Provider Physician Assistant
DX: L23.7 Allergic contact dermatitis due to plants, except food (principal)
CPT/HCPCS: 96372; 99284; J1100; J9999

== ENCOUNTER 2024-12-15 20:29 | Emergency (ER) | payer BC, MEDICAID, SELFPAY ==
[2024-12-15 20:33] VITALS: BP 129/79; PULSE 110; RESP 18; TEMP 36.7; O2SAT 100; BMI 26.6
--- OUTSIDE RECORDS SUMMARY | 2024-12-15 20:38 | XMS_ITS | Clinical Summary ---
Author Organization [facility] Address [address] [facility] Attn: Epic Prelude ADT MIRTA NIETO [address] Care Team Providers Care Tucking Machine Operator Name Role Phone James Hylton [...] on file Legal Sex Female 2:23 PM LEAD ORACLE DEVELOPER Gender Identity Not on file Sexual Orientation Not on file Last Filed Vital Signs Vital Sign Reading Time Taken Comments Blood Pressure 112/64 03/22/2019 5:43 AM LEAD ORACLE DEVELOPER Pulse - - Temperature 36.8 C (98.2 F) 03/22/2019 5:43 AM LEAD ORACLE DEVELOPER Respiratory Rate 18 03/22/2019 5:14 AM LEAD ORACLE DEVELOPER Oxygen Saturation - - Inhaled Oxygen Concentration - - Weight 59.1 kg (130 lb 6.4 oz) 03/22/2019 5:14 A M LEAD ORACLE DEVELOPER Height 165.1 cm (5' 5 ) 03/22/2019 5:14 AM LEAD ORACLE DEVELOPER Body Mass Index 21.7 03/22/2019 5:14 AM LEAD ORACLE DEVELOPER Plan of Treatment Health Maintenance Due Date Last Done Comments DTAP/TDAP/TD VACCINES (6 - Tdap) 2005 08/07/1999, 06/28/1996, 12/01/1995, Additional history exists HPV VACCINES (1 - 3-dose series) 2009 HPV/Cotest (21-29) 11/20/2015 CERVICAL CANCER SCREENING 2024 HPV/Cotest (30-65) 2024 PAP SMEAR 2024 INFLUENZA VACCINE (#1) 2024 HEPATITIS B VACCINES Completed 09/16/1995, 06/22/1995, 1994 Care Teams Tucking Machine Operator Relationship Specialty Start Date End Date James Hylton, Harinder Calzada MD [address] [place] [phone] PCP - General 05/24/02
--- OUTSIDE RECORDS SUMMARY | 2024-12-15 20:38 | XMS_ITS | Encounter Summary ---
Author Organization [facility] Address [address] [place] [address] Care Team Providers Care Computer Tester Name Role Phone James Hylton MD, Harinder Calzada Primary Care Pr ovider Encounter Details Date Type Department Care Team (Latest Contact Info) Description 03/06/2002 Outpatient Historical [facility] Oral and Maxillo Surgery- [address] [place] [address] Adolfo Aguilar, DDS NO ADDRESS ON FILE UNSPEC DENTAL CARIES (Primary Dx) Social History Tobacco Use Types Packs/Day Years Used Date Smoking Tobacco: Never Assessed Comments Unknown Sex and Gender Information Value Date Recorded Sex Assigned at Not on file Legal Sex Female 6:21 AM NOVELTY MAKER Gender Identity Not on file Sexual Orientation Not on file documented as of this encounter Plan of Treatment Not on file documented as of this encounter Visit Diagnoses Diagnosis Unspecified dental caries- Primary documented in this encounter Care Teams Computer Tester Relationship Specialty Start Date End Date Harinder Ramirez Jr., MD [address] [place] [phone] PCP - General 05/24/02 documented as of this encounter
--- OUTSIDE RECORDS SUMMARY | 2024-12-15 20:38 | XMS_ITS | Encounter Summary ---
Author Organization [facility] Address [address] [place] [address] Care Team Providers Care Cosmetology Instructor Name Role Phone James Hylton MD, Harinder Calzada Primary Care Pr waterburyer Encounter Details Date Type Department Care Team (Latest Contact Info) Description 08/09/2002 Outpatient Historical [facility] Operating Room [address] [place] [address] Adolfo Aguilar, LUNAS NO ADDRESS ON FILE UNSPEC DENTAL CARIES (Primary Dx) Social History Tobacco Use Types Packs/Day Years Used Date Smoking Tobacco: Never Assessed Comments Unknown Sex and Gender Information Value Date Recorded Sex Assigned at Not on file Legal Sex Female 6:21 AM LITERACY COORDINATOR Gender Identity Not on file Sexual Orientation Not on file documented as of this encounter Plan of Treatment Not on file documented as of this encounter Visit Diagnoses Diagnosis Unspecified dental caries- Primary documented in this encounter Care Teams Cosmetology Instructor Relationship Specialty Start Date End Date Harinder Ramirez Jr., MD [address] [place] [phone] PCP - General 05/24/02 documented as of this encounter
--- OUTSIDE RECORDS SUMMARY | 2024-12-15 20:38 | XMS_ITS | Encounter Summary ---
Author Organization [facility] Address [address] [place] [address] Care Team Providers Care Manager Bench Name Role Phone James Hylton MD, Harinder Calzada Primary Care Pr ovider Encounter Details Date Type Department Care Team (Latest Contact Info) Description 05/24/2002 Outpatient Historical [facility] Operating Room [address] [place] [address] Adolfo Aguilar, LUNAS NO ADDRESS ON FILE DENTAL DISORDER NOS (Primary Dx) Social History Tobacco Use Types Packs/Day Years Used Date Smoking Tobacco: Never Assessed Comments Unknown Sex and Gender Information Value Date Recorded Sex Assigned at Not on file Legal Sex Female 6:21 AM ANNEALING FURNACE TENDER Gender Identity Not on file Sexual Orientation Not on file documented as of this encounter Plan of Treatment Not on file documented as of this encounter Visit Diagnoses Diagnosis Unspecified disorder of the teeth and supporting structures- Primary documented in this encounter Care Teams Manager Bench Relationship Specialty Start Date End Date Harinder Ramirez Jr., MD [address] [place] [phone] PCP - General 05/24/02 documented as of this encounter
--- OUTSIDE RECORDS SUMMARY | 2024-12-15 20:38 | XMS_ITS | Clinical Summary ---
Author Organization [facility] Address [address] [address] Phone Care Team Providers Care Plaster Machine Tender Name Role Phone James Hylton MD, Harinder [...] on file Legal Sex Female 6:21 AM SENIOR SYSTEMS DEVELOPER Gender Identity Not on file Sexual Orientation Not on file Last Filed Vital Signs Vital Sign Reading Time Taken Comments Blood Pressure 112/64 03/22/2019 5:43 AM SENIOR SYSTEMS DEVELOPER Pulse - - Temperature 36.8 C (98.2 F) 03/22/2019 5:43 AM SENIOR SYSTEMS DEVELOPER Respiratory Rate 18 03/22/2019 5:14 AM SENIOR SYSTEMS DEVELOPER Oxygen Saturation 98% 03/22/2019 5:43 AM SENIOR SYSTEMS DEVELOPER Inhaled Oxygen Concentration - - Weight 59.1 kg (130 lb 6.4 oz) 03/22/2019 5:14 A M SENIOR SYSTEMS DEVELOPER Height 165.1 cm (5' 5 ) 03/22/2019 5:14 AM SENIOR SYSTEMS DEVELOPER Body Mass Index 21.7 03/22/2019 5:14 AM SENIOR SYSTEMS DEVELOPER Plan of Treatment Health Maintenance Due Date Last Done Comments DTAP/TDAP/TD VACCINES (6 - Tdap) 2005 08/07/1999, 06/28/1996, 12/01/1995, Additional history exists HPV VACCINES (1 - 3-dose series) 2009 HPV/Cotest (21-29) 11/20/2015 CERVICAL CANCER SCREENING 2024 HPV/Cotest (30-65) 2024 PAP SMEAR 2024 INFLUENZA VACCINE (#1) 2024 HEPATITIS B VACCINES Completed 09/16/1995, 06/22/1995, 1994 Care Teams Plaster Machine Tender Relationship Specialty Start Date End Date James Hylton, Harinder Calzada MD [address] [place] [phone] PCP - General 05/24/02
--- OUTSIDE RECORDS SUMMARY | 2024-12-15 20:38 | XMS_ITS | Encounter Summary ---
Author Organization [facility] Address [address] [place] [address] Care Team Providers Care Coordinator Of Rehabilitation Services Name Role Phone James Hylton MD, Harinder Calzada Primary Care Pr ovider Encounter Details Date Type Department Care Team (Latest Contact Info) Description 08/09/2002 Outpatient Historical [facility] Oral and Maxillo Surgery- [address] [place] [address] Adolfo Aguilar, DDS NO ADDRESS ON FILE UNSPEC DENTAL CARIES (Primary Dx) Social History Tobacco Use Types Packs/Day Years Used Date Smoking Tobacco: Never Assessed Comments Unknown Sex and Gender Information Value Date Recorded Sex Assigned at Not on file Legal Sex Female 6:21 AM RESEARCH ATTORNEY Gender Identity Not on file Sexual Orientation Not on file documented as of this encounter Plan of Treatment Not on file documented as of this encounter Visit Diagnoses Diagnosis Unspecified dental caries- Primary documented in this encounter Care Teams Coordinator Of Rehabilitation Services Relationship Specialty Start Date End Date Harinder Ramirez Jr., MD [address] [place] [phone] PCP - General 05/24/02 documented as of this encounter
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
== END 2024-12-15 22:53 | disposition home or self-care (01) ==
PROVIDERS: Emergency Provider Physician Assistant
DX: S30.0XXA Contusion of lower back and pelvis, initial encounter (principal); W16.92XA Jumping or diving into unspecified water causing other injury, initial encounter
CPT/HCPCS: 72131; 72192; 99284

== ENCOUNTER 2025-02-08 13:42 | Emergency (ER) | payer BC, MEDICAID, SELFPAY ==
[2025-02-08 14:03] VITALS: BP 131/87; PULSE 102; RESP 20; TEMP 36.6; O2SAT 97
--- OUTSIDE RECORDS SUMMARY | 2025-02-08 14:26 | XMS_ITS | Clinical Summary ---
Author Organization [employer] Address [address] [facility] Attn: Epic Prelude ADT MIRTA NIETO [address] Care Team Providers Care Surgical Manager Name Role Phone James Hylton MD, [...] on file Legal Sex Female 2:23 PM FINANCIAL SERVICE PROFESSIONAL Gender Identity Not on file Sexual Orientation Not on file Last Filed Vital Signs Vital Sign Reading Time Taken Comments Blood Pressure 112/64 03/22/2019 5:43 AM FINANCIAL SERVICE PROFESSIONAL Pulse - - Temperature 36.8 C (98.2 F) 03/22/2019 5:43 AM FINANCIAL SERVICE PROFESSIONAL Respiratory Rate 18 03/22/2019 5:14 AM FINANCIAL SERVICE PROFESSIONAL Oxygen Saturation - - Inhaled Oxygen Concentration - - Weight 59.1 kg (130 lb 6.4 oz) 03/22/2019 5:14 A M FINANCIAL SERVICE PROFESSIONAL Height 165.1 cm (5' 5 ) 03/22/2019 5:14 AM FINANCIAL SERVICE PROFESSIONAL Body Mass Index 21.7 03/22/2019 5:14 AM FINANCIAL SERVICE PROFESSIONAL Plan of Treatment Health Maintenance Due Date Last Done Comments DTAP/TDAP/TD VACCINES (6 - Tdap) 2005 08/07/1999, 06/28/1996, 12/01/1995, Additional history exists HPV/Cotest (21-29) 11/20/2015 HPV VACCINES (1 - 3-dose SCD M series) 2021 CERVICAL CANCER SCREENING 2024 HPV/Cotest (30-65) 2024 PAP SMEAR 2024 INFLUENZA VACCINE (#1) 2024 HEPATITIS B VACCINES Completed 09/16/1995, 06/22/1995, 1994 Care Teams Surgical Manager Relationship Specialty Start Date End Date James Hylton, Harinder Calzada MD [address] [place] [address] [phone] PCP - General 05/24/02
--- OUTSIDE RECORDS SUMMARY | 2025-02-08 14:26 | XMS_ITS | Encounter Summary ---
Author Organization [facility] Address [address] [place] [address] Care Team Providers Care Cook Chill Technician Name Role Phone James Hylton MD, Harinder Calzada Primary Care Pr ovider Encounter Details Date Type Department Care Team (Latest Contact Info) Description 08/09/2002 Outpatient Historical [facility] Oral and Maxillo Surgery- [address] [place] [address] Adolfo Aguilar, DDS NO ADDRESS ON FILE UNSPEC DENTAL CARIES (Primary Dx) Social History Tobacco Use Types Packs/Day Years Used Date Smoking Tobacco: Never Assessed Comments Unknown Sex and Gender Information Value Date Recorded Sex Assigned at Not on file 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
--- OUTSIDE RECORDS SUMMARY | 2025-02-08 14:26 | XMS_ITS | Clinical Summary ---
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 Gender Identity Not on file Sexual Orientation Not on file Last Filed Vital Signs Vital Sign Reading Time Taken Comments Blood Pressure 112/64 03/22/2019 5:43 AM BRIQUETTE OPERATOR Pulse - - Temperature 36.8 C (98.2 F) 03/22/2019 5:43 AM BRIQUETTE OPERATOR Respiratory Rate 18 03/22/2019 5:14 AM BRIQUETTE OPERATOR Oxygen Saturation 98% 03/22/2019 5:43 AM BRIQUETTE OPERATOR Inhaled Oxygen Concentration - - Weight 59.1 kg (130 lb 6.4 oz) 03/22/2019 5:14 A M BRIQUETTE OPERATOR Height 165.1 cm (5' 5 ) 03/22/2019 5:14 AM BRIQUETTE OPERATOR Body Mass Index 21.7 03/22/2019 5:14 AM BRIQUETTE OPERATOR Plan of Treatment Health Maintenance Due Date Last Done Comments DTAP/TDAP/TD VACCINES (6 - Tdap) 2005 08/07/1999, 06/28/1996, 12/01/1995, Additional history exists HPV/Cotest (21-29) 11/20/2015 HPV VACCINES (1 - 3-dose SCD M series) 2021 CERVICAL CANCER SCREENING 2024 HPV/Cotest (30-65) 2024 PAP SMEAR 2024 INFLUENZA VACCINE (#1) 2024 HEPATITIS B VACCINES Completed 09/16/1995, 06/22/1995, 1994 Care Teams Stripper Color Relationship Specialty Start Date End Date James Hylton, Harinder Calzada MD [address] [place] [phone] PCP - General 05/24/02
--- OUTSIDE RECORDS SUMMARY | 2025-02-08 14:26 | XMS_ITS | Encounter Summary ---
Author Organization [facility] Address [address] [place] [address] Care Team Providers Care Fire Investigator Name Role Phone James Hylton MD, Harinder Calzada Primary Care Pr ovider Encounter Details Date Type Department Care Team (Latest Contact Info) Description 05/24/2002 Outpatient Historical [facility] Operating Room [address] [place] [address] Adolfo Aguilar, LUNAS NO ADDRESS ON FILE DENTAL DISORDER NOS (Primary Dx) Social History Tobacco Use Types Packs/Day Years Used Date Smoking Tobacco: Never Assessed Comments Unknown Sex and Gender Information Value Date Recorded Sex Assigned at Not on file 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
--- OUTSIDE RECORDS SUMMARY | 2025-02-08 14:26 | XMS_ITS | Encounter Summary ---
Author Organization [facility] Address [address] [place] [address] Care Team Providers Care Supervisor [employer] Name Role Phone James Hylton MD, Harinder Calzada Primary Care Pr ovider Encounter Details Date Type Department Care Team (Latest Contact Info) Description 03/06/2002 Outpatient Historical [facility] Oral and Maxillo Surgery- [address] [place] [address] Adolfo Aguilar, DDS NO ADDRESS ON FILE UNSPEC DENTAL CARIES (Primary Dx) Social History Tobacco Use Types Packs/Day Years Used Date Smoking Tobacco: Never Assessed Comments Unknown Sex and Gender Information Value Date Recorded Sex Assigned at Not on file 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
--- OUTSIDE RECORDS SUMMARY | 2025-02-08 14:26 | XMS_ITS | Encounter Summary ---
Author Organization [facility] Address [address] [place] [address] Care Team Providers Care Balance Screwhead Polisher Name Role Phone James Hylton MD, Harinder Calzada Primary Care Pr napierer Encounter Details Date Type Department Care Team (Latest Contact Info) Description 08/09/2002 Outpatient Historical [facility] Operating Room [address] [place] [address] Adolfo Aguilar, LUNAS NO ADDRESS ON FILE UNSPEC DENTAL CARIES (Primary Dx) Social History Tobacco Use Types Packs/Day Years Used Date Smoking Tobacco: Never Assessed Comments Unknown Sex and Gender Information Value Date Recorded Sex Assigned at Not on file 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
--- NOTE | 2025-02-08 14:41 | W.ED.ANIMALB ---
Documented by User: OUSMANE Simmons 02/08/25 14:44 HPI - Animal Bite General: Chief Complaint: Animal Bite Stated Complaint: R Leg Bite Time Seen by Provider: 02/08/25 14:09 Source: patient Mode of arrival: ambulatory Limitations: no limitations History of Present Illness: This patient is a 29-year-old female who presents emergency department for being bit to her right lower extremity. She has superficial bite sutton to the thigh extending down to the calf, there is 1 larger wound to the proximal calf however there are no active bleeding wounds at this time. States she is having pain, but no numbness or difficulty walking. This was a bite that was provoked, as patient was having a domestic issue with her significant other and though she is unknown of the dog's vaccination status it is able to be monitored. She states that her tetanus is not up-to-date. Requesting something for pain at this time. No other symptoms noted. MD complaint: animal bite Onset (ago): minute(s) Animal: dog Description of animal: household pet and immunizations unknown Mechanism: bite Location - Extremities: Right: thigh, lower leg and ankle Context: provoked Associated symptoms: Deny chills, fever(s) or headache(s) Related Data Previous Rx's ?Medication ?Instructions ?Recorded mupirocin 2 % topical ointment 1 applic topical TID 10 days #15 12/16/22 grams diphenhydramine HCl 25 mg tablet 50 mg (2 x 25 mg) PO Q8H PRN 12/18/23 (Benadryl Allergy) nausea and vomiting #30 tabs famotidine 40 mg tablet (Pepcid) 40 mg PO BID #10 tabs 12/18/23 prednisone 20 mg tablet 60 mg (3 x 20 mg) PO DAILY 5 days 12/18/23 #15 tabs naproxen 500 mg tablet (Naprosyn) 500 mg PO BID PRN pain #20 tabs 10/25/24 methylprednisolone 4 mg tablets in See Rx Instructions PO .COMPLEX 11/19/24 a dose pack (Medrol (Jagjit)) #21 ea doxycycline hyclate 100 mg tablet 100 mg PO BID 10 days #20 tabs 02/08/25 Allergies Allergy/AdvReac Type Severity Reaction Status Date / Time amoxicillin Allergy Mild ADR-Diarrhe Verified 02/07/24 16:16 a Review of Systems General: Reports: 10 or more systems reviewed and unremarkable except in HPI and below Const: Denies: fever(s) or chills Card: Denies: chest pain Resp: Denies: dyspnea GI: Denies: abdominal pain, nausea, vomiting or diarrhea Musc: Reports: extremity pain; Denies: joint pain Skin/Breast: Reports: skin pain, skin tenderness and new lesions (Multiple bug bite lesions to right lower extremity); Denies: rash Neuro: Denies: headache(s) PFSH ED PFSH: Social History Smoking and tobacco/nicotine status: unknown if used tobacco/nicotine Alcohol intake: current Physical Exam Const: COMMON NORMALS: no acute distress, average body habitus, patient oriented x3, no limitations, healthy appearing, alert and well nourished HENMT: COMMON NORMALS: normocephalic and atraumatic HEAD & SCALP: normocephalic and atraumatic Neck/C-Spine: COMMON NORMALS: full ROM, no lymphadenopathy, supple and no meningeal signs Resp: COMMON NORMALS: normal respiratory effort, No use of accessory muscles and clear to auscultation bilaterally AUSCULTATION: clear to auscultation bilaterally Cardio: COMMON NORMALS: regular rate and regular rhythm RATE: regular rate RHYTHM: regular rhythm Extremity: COMMON NORMALS: full ROM and capillary refill normal Neuro: COMMON NORMALS: patient oriented x3 SENSORIUM/ORIENTATION: Yes alert MENINGEAL SIGNS: Yes no meningeal signs Skin: COMMON NORMALS: turgor normal NARRATIVE SKIN EXAM: Multiple scattered superficial dog bite abrasions to the right medial thigh. To the right proximal calf, there is a larger, 1 cm stellate laceration with mild adiposity protruding but no active bleeding. Further, scattered superficial lacerations to the right distal calf and right medial ankle. GENERAL SKIN EXAM: turgor normal Course Vital Signs: Vital signs: Vital Signs Temperature 97.9 F 02/08/25 14:03 Pulse Rate 102 H 02/08/25 14:03 Respiratory Rate 20 H 02/08/25 14:03 Blood Pressure 131/87 02/08/25 14:03 Pulse Oximetry 97 02/08/25 14:03 Oxygen Delivery Me thod Room Air 02/08/25 14:03 MDM - Animal Bite Medical Decision Making This patient presents with multiple dog bite injuries, none of which would benefit from any procedural closure as they will be left open to prevent trapping infection. They are irrigated thoroughly here in the emergency department, and dressed appropriately. Tetanus is updated. Due to dog able to be monitored, and this being a provoked injury will omit rabies prophylaxis at this time, this was shared decision making with patient. Discussed proper wound care at home and signs and symptoms of infection to watch for. She will be started on doxycycline for 10 days, as she is allergic to amoxicillin. No radiology studies performed this visit Discharge Plan Discharge Patient Disposition: Home Clinical Impression: Dog bite of multiple sites of right lower extremity Qualifiers: Encounter type: initial encounter Qualified Code(s): S81.851A - Open bite, right lower leg, initial encounter Condition: Stable Prescriptions: New doxycycline hyclate 100 mg tablet 100 mg PO BID 10 Days Qty: 20 0RF No Action mupirocin 2 % ointment 1 applic topical TID 10 Days Qty: 15 0RF prednisone 20 mg tablet 60 mg PO DAILY 5 Days Qty: 15 0RF famotidine [Pepcid] 40 mg tablet 40 mg PO BID Qty: 10 0RF diphenhydramine HCl [Benadryl Allergy] 25 mg tablet 50 mg PO Q8H PRN (Reason: nausea and vomiting) Qty: 30 0RF naproxen [Naprosyn] 500 mg tablet 500 mg PO BID PRN (Reason: pain) Qty: 20 0RF methylprednisolone [Medrol (Jagjit)] 4 mg tablets,dose pack See Rx Instructions .ROUTE .COMPLEX Qty: 21 0RF Rx Instructions: for 6 days Discharge Orders: Discharge ED (Routine); Ordered 02/08/25 Ordered By: Shoaib Khalil Patient Instructions: Patient Portal & [facility] Instructions Activity Restrictions/Additional Instructions: Dog Bite Discharge Instructions Wound Care Instructions: - Clean the wounds twice daily: Gently wash each wound with mild soap and running water for at least 20 minutes. Avoid scrubbing. Rinse thoroughly and pat dry with a clean towel. - Do not close or cover tightly: Leave wounds open to air or cover loosely with a clean, non-stick dressing. Change dressings daily or if they become wet or dirty. - Do not apply ointments or creams unless directed: Avoid topical antibiotics or antiseptics unless specifically instructed, as they do not improve healing in clean wounds. - Elevate the affected leg: Keep the right leg elevated as much as possible to reduce swelling and promote healing. Medication Instructions: - Take doxycycline 100 mg by mouth twice daily for 10 days. Take with a full glass of water and remain upright for 30 minutes after each dose to reduce stomach upset. Complete the full course, even if wounds appear healed. Signs and Symptoms to Monitor: Contact your healthcare provider or seek medical attention if you notice any of the following: - Increasing redness, warmth, swelling, or pain around the wounds - Pus or foul-smelling drainage - Fever or chills - Red streaks spreading from the wound - Difficulty moving the leg or foot - Numbness or tingling - Worsening swelling despite elevation Other Important Information: - Tetanus vaccination is up to date. - Rabies prophylaxis is not needed because the dog can be monitored and the bite was provoked. - Follow up as directed for wound checks or if any symptoms worsen. If you have any questions or concerns, contact your healthcare provider promptly. 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[employer] Documented by User: Michael Hernandez DO 02/08/25 15:28 HPI - Animal Bite General: Chief Complaint: Animal Bite Stated Complaint: R Leg Bite Time Seen by Provider: 02/08/25 14:09 Related Data Previous Rx's ?Medication ?Instructions ?Recorded mupirocin 2 % topical ointment 1 applic topical TID 10 days #15 12/16/22 grams diphenhydramine HCl 25 mg tablet 50 mg (2 x 25 mg) PO Q8H PRN 12/18/23 (Benadryl Allergy) nausea and vomiting #30 tabs famotidine 40 mg tablet (Pepcid) 40 mg PO BID #10 tabs 12/18/23 prednisone 20 mg tablet 60 mg (3 x 20 mg) PO DAILY 5 days 12/18/23 #15 tabs naproxen 500 mg tablet (Naprosyn) 500 mg PO BID PRN pain #20 tabs 10/25/24 methylprednisolone 4 mg tablets in See Rx Instructions PO .COMPLEX 11/19/24 a dose pack (Medrol (Jagjit)) #21 ea doxycycline hyclate 100 mg tablet 100 mg PO BID 10 days #20 tabs 02/08/25 Allergies Allergy/AdvReac Type Severity Reaction Status Date / Time amoxicillin Allergy Mild ADR-Diarrhe Verified 02/07/24 16:16 a [facility] ED PFSH: Social History Smoking and tobacco/nicotine status: unknown if used tobacco/nicotine Alcohol intake: current Course Vital Signs: Vital signs: Vital Signs Temperature 97.9 F 02/08/25 14:03 Pulse Rate 102 H 02/08/25 14:03 Respiratory Rate 20 H 02/08/25 14:03 Blood Pressure 131/87 02/08/25 14:03 Pulse Oximetry 97 02/08/25 14:03 Oxygen Delivery Me thod Room Air 02/08/25 14:03 MDM - Animal Bite Medical Decision Making This patient presents with multiple dog bite injuries, none of which would benefit from any procedural closure as they will be left open to prevent trapping infection. They are irrigated thoroughly here in the emergency department, and dressed appropriately. Tetanus is updated. Due to dog able to be monitored, and this being a provoked injury will omit rabies prophylaxis at this time, this was shared decision making with patient. Discussed proper wound care at home and signs and symptoms of infection to watch for. She will be started on doxycycline for 10 days, as she is allergic to amoxicillin. Chart reviewed and patient discussed with midlevel. Agree with assessment and plan. Discharge Plan Discharge Patient Disposition: Home Clinical Impression: Dog bite of multiple sites of right lower extremity Qualifiers: Encounter type: initial encounter Qualified Code(s): S81.851A - Open bite, right lower leg, initial encounter Condition: Stable Prescriptions: New doxycycline hyclate 100 mg tablet 100 mg PO BID 10 Days Qty: 20 0RF No Action mupirocin 2 % ointment 1 applic topical TID 10 Days Qty: 15 0RF prednisone 20 mg tablet 60 mg PO DAILY 5 Days Qty: 15 0RF famotidine [Pepcid] 40 mg tablet 40 mg PO BID Qty: 10 0RF diphenhydramine HCl [Benadryl Allergy] 25 mg tablet 50 mg PO Q8H PRN (Reason: nausea and vomiting) Qty: 30 0RF naproxen [Naprosyn] 500 mg tablet 500 mg PO BID PRN (Reason: pain) Qty: 20 0RF methylprednisolone [Medrol (Jagjit)] 4 mg tablets,dose pack See Rx Instructions .ROUTE .COMPLEX Qty: 21 0RF Rx Instructions: for 6 days Discharge Orders: Discharge ED (Routine); Ordered 02/08/25 Ordered By: Shoaib Khalil Patient Instructions: Patient Portal & [facility] Instructions Activity Restrictions/Additional Instructions: Dog Bite Discharge Instructions Wound Care Instructions: - Clean the wounds twice daily: Gently wash each wound with mild soap and running water for at least 20 minutes. Avoid scrubbing. Rinse thoroughly and pat dry with a clean towel. - Do not close or cover tightly: Leave wounds open to air or cover loosely with a clean, non-stick dressing. Change dressings daily or if they become wet or dirty. - Do not apply ointments or creams unless directed: Avoid topical antibiotics or antiseptics unless specifically instructed, as they do not improve healing in clean wounds. - Elevate the affected leg: Keep the right leg elevated as much as possible to reduce swelling and promote healing. Medication Instructions: - Take doxycycline 100 mg by mouth twice daily for 10 days. Take with a full glass of water and remain upright for 30 minutes after each dose to reduce stomach upset. Complete the full course, even if wounds appear healed. Signs and Symptoms to Monitor: Contact your healthcare provider or seek medical attention if you notice any of the following: - Increasing redness, warmth, swelling, or pain around the wounds - Pus or foul-smelling drainage - Fever or chills - Red streaks spreading from the wound - Difficulty moving the leg or foot - Numbness or tingling - Worsening swelling despite elevation Other Important Information: - Tetanus vaccination is up to date. - Rabies prophylaxis is not needed because the dog can be monitored and the bite was provoked. - Follow up as directed for wound checks or if any symptoms worsen. If you have any questions or concerns, contact your healthcare provider promptly. 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
[2025-02-08] MEDS: tetanus-dipt-pertussis 0.5 mL SDV IM (14:48)
[2025-02-08] MEDS: HYDROcodone-acetaminophen 7.5-325 mg Tablet 1 TAB PO (14:48)
== END 2025-02-08 15:08 | disposition home or self-care (01) ==
PROVIDERS: Emergency Provider Physician Assistant
DX: S81.851A Open bite, right lower leg, initial encounter (principal); W54.0XXA Bitten by dog, initial encounter
CPT/HCPCS: 90471; 90715; 99283; A6446; J9999